=== PATIENT | male | born 1965 | race Caucasian/White ===

== ENCOUNTER 2018-05-04 06:55 | Inpatient (IN) | payer MEDICAID ==
[~2018-05-04] VITALS: Ht 182.9 cm; Wt 73.6 kg
[2018-05-04] MEDS ORDERED: SODIUM CHLORIDE 0.9% 1,000ML IVBOLUS ONE (07:30)
[2018-05-04] MEDS ORDERED: ASPIRIN 81 MG TABLET CHEW PO ONE (07:30)
[2018-05-04] MEDS ORDERED: ASPIRIN 81 MG TABLET CHEW ONE (07:31)
[2018-05-04 07:41] LABS: CALCIUM 7.8 mg/dL (8.5-10.1); CHLORIDE 89 mmol/L (98-107)
[2018-05-04 07:45] LABS: ALBUMIN 1.8 g/dL (3.4-5.0); CREATININE 0.86 mg/dL (0.7-1.3)
[2018-05-04 07:49] LABS: TROPONIN I < 0.015 ng/mL (0.000-0.045)
[2018-05-04 08:17] LABS: MEAN CORPUSCULAR HEMOGLOBIN 33.8 pg (27.5-34.5); MEAN CORPUSCULAR HGB CONC 34.6 g/dL (33.2-36.2); MEAN CORPUSCULAR VOLUME 97.6 fL (81-97); MEAN PLATELET VOLUME 10.5 fL (7.4-10.4); PLATELET COUNT 69 x10^3/uL (130-400); RED BLOOD COUNT 4.32 x10^6/uL (4.38-5.82)
[2018-05-04 08:18] LABS: ANION GAP 13 mmol/L (5-15)
[2018-05-04 08:23] LABS: BAND#(MANUAL) 1.39 x10^3/uL; BANDS%(MANUAL) 14 % (0-7); LYMPH#(MANUAL) 0.59 x10^3/uL (1-3.4); LYMPHS% (MANUAL) 6 % (22-44)
[2018-05-04 08:27] LABS: MONOS% (MANUAL) 1 % (2-9)
[2018-05-04 08:28] LABS: PMNS WITH VACUOLES 2+; SEG#(MANUAL) 7.82 x10^3/uL (1.8-6.8); SEGS% (MANUAL) 79 % (42-75)
[2018-05-04 08:29] LABS: TOXIC GRAN 2+
[2018-05-04] MEDS ORDERED: LORazepam 2 MG/ML, 1ML ONE (08:29)
[2018-05-04 08:30] LABS: <PLATELET ESTIMATE> DECREASED; <RBC MORPHOLOGY> NORMAL; LARGE PLATELETS 1+
[2018-05-04] MEDS ORDERED: LORazepam 2 MG/ML, 1ML IVPush ONE (08:30)
[2018-05-04 08:31] LABS: MD YES
[2018-05-04] MEDS ORDERED: OMNIPAQUE 350 MG/ML, 100ML BOTTLE ONE (08:33)
[2018-05-04] MEDS ORDERED: CEFTRIAXONE PMX 1GM/50ML 50 ML ONE (08:52)
[2018-05-04] MEDS ORDERED: AZITHROMYCIN 500 MG in SODIUM CHLORIDE 0.9% 250 ML IV ONE (09:00)
[2018-05-04] MEDS ORDERED: CEFTRIAXONE PMX 1GM/50ML 50 ML IV ONE (09:00)
[2018-05-04] MEDS ORDERED: POTASSIUM CHLORIDE 40 MEQ in SODIUM CHLORIDE 0.9% 500 ML IV ONE (09:00)
[2018-05-04] MEDS ORDERED: VANCOMYCIN PER PHARMACY MC PRN (10:30)
[2018-05-04] MEDS: LEVOFLOXACIN/PMX 750MG/150ML 150 ML IV SCH (11:00)
[2018-05-04] MEDS: methylPREDNISolone SOD SUCC 40 MG/ML IVPush SCH ×3 (11:13→23:11)
[2018-05-04] MEDS: HEPARIN 5,000 UNITS/ML, 1ML SQ SCH ×2 (11:13→16:58)
[2018-05-04] MEDS: NICOTINE 7 MG/24 HR PATCH.TD24 TD SCH (11:13)
[2018-05-04 11:25] VITALS: BP 118/62
[2018-05-04] MEDS ORDERED: PHARMACOKINETIC MONITORING MC PRN (11:30)
[2018-05-04 12:18] LABS: TOTAL PROTEIN 5.6 g/dL (6.4-8.2)
[2018-05-04] MEDS ORDERED: ALBUTEROL/IPRATROPIUM 2.5MG/0.5MG, 3 ML IPPB PRN (13:00)
[2018-05-04] MEDS: PIPERACILLIN/TAZO/PMX 4.5GM 100 ML IV SCH ×2 (14:02→19:34)
[2018-05-04 14:30] VITALS: BP 114/74
[2018-05-04] MEDS: VANCOMYCIN 1,400 MG in SODIUM CHLORIDE 0.9% 250 ML IV SCH (14:56)
[2018-05-04] MEDS: ALBUTEROL/IPRATROPIUM 2.5MG/0.5MG, 3 ML IPPB SCH ×2 (15:00→20:48)
[2018-05-04] MEDS ORDERED: POTASSIUM CHLORIDE 20 MEQ TAB.ER.PRT PO ONE (16:00)
[2018-05-04 16:40] LABS: ALBUMIN 1.6 g/dL (3.4-5.0); ANION GAP 11 mmol/L (5-15); CALCIUM 7.6 mg/dL (8.5-10.1); CHLORIDE 94 mmol/L (98-107); CREATININE 0.69 mg/dL (0.7-1.3)
[2018-05-04] MEDS ORDERED: LIDOCAINE-MPF 1%, 5ML ONE (16:59)
[2018-05-04] MEDS: FAMOTIDINE 20 MG TABLET PO SCH (19:33)
[2018-05-04] MEDS: ACETAMINOPHEN 325 MG TABLET PO PRN (19:33)
[2018-05-04 20:12] VITALS: BP 130/79
[2018-05-05] MEDS: PIPERACILLIN/TAZO/PMX 4.5GM 100 ML IV SCH ×4 (01:50→20:10)
[2018-05-05 02:54] VITALS: BP 125/75
[2018-05-05] MEDS: VANCOMYCIN 1,400 MG in SODIUM CHLORIDE 0.9% 250 ML IV SCH ×2 (03:43→16:05)
[2018-05-05] MEDS: HEPARIN 5,000 UNITS/ML, 1ML SQ SCH ×3 (03:44→20:11)
[2018-05-05] MEDS: methylPREDNISolone SOD SUCC 40 MG/ML IVPush SCH ×3 (05:17→17:17)
[2018-05-05 05:54] LABS: MEAN CORPUSCULAR HEMOGLOBIN 34.5 pg (27.5-34.5); MEAN CORPUSCULAR HGB CONC 35.1 g/dL (33.2-36.2); MEAN CORPUSCULAR VOLUME 98.4 fL (81-97); MEAN PLATELET VOLUME 10.6 fL (7.4-10.4); PLATELET COUNT 78 x10^3/uL (130-400); RED BLOOD COUNT 4.09 x10^6/uL (4.38-5.82); RED CELL DISTRIBUTION WIDTH 14.8 % (9.4-14.8)
[2018-05-05 06:02] LABS: ALBUMIN 1.4 g/dL (3.4-5.0); ANION GAP 11 mmol/L (5-15); CALCIUM 7.8 mg/dL (8.5-10.1); CHLORIDE 99 mmol/L (98-107)
[2018-05-05 06:07] LABS: ALANINE AMINOTRANSFERASE 65 U/L (12-78); ALKALINE PHOSPHATASE 55 U/L (45-117); BILIRUBIN,TOTAL 1.2 mg/dL (0.2-1.0); CREATININE 0.76 mg/dL (0.7-1.3); TOTAL PROTEIN 5.7 g/dL (6.4-8.2)
[2018-05-05 06:14] LABS: MD YES
[2018-05-05 06:16] LABS: <RBC MORPHOLOGY> NORMAL; BAND#(MANUAL) 0.54 x10^3/uL; BANDS%(MANUAL) 4 % (0-7); LYMPH#(MANUAL) 0.14 x10^3/uL (1-3.4); LYMPHS% (MANUAL) 1 % (22-44); SEG#(MANUAL) 12.92 x10^3/uL (1.8-6.8); SEGS% (MANUAL) 95 % (42-75)
[2018-05-05 06:17] LABS: <PLATELET ESTIMATE> DECREASED; LARGE PLATELETS 1+; PMNS WITH VACUOLES 1+; TOXIC GRAN 1+
[2018-05-05] MEDS: ALBUTEROL/IPRATROPIUM 2.5MG/0.5MG, 3 ML IPPB SCH ×4 (07:00→20:00)
[2018-05-05 07:46] VITALS: BP 124/77
[2018-05-05] MEDS: FAMOTIDINE 20 MG TABLET PO SCH ×2 (08:21→20:10)
[2018-05-05] MEDS: ACETAMINOPHEN 325 MG TABLET PO PRN ×3 (08:27→21:40)
[2018-05-05] MEDS: LEVOFLOXACIN/PMX 750MG/150ML 150 ML IV SCH (10:53)
[2018-05-05] MEDS: NICOTINE 7 MG/24 HR PATCH.TD24 TD SCH (10:53)
[2018-05-05 13:24] VITALS: BP 122/77
[2018-05-05 21:24] VITALS: BP 120/76
[2018-05-05] MEDS: LORazepam 2 MG/ML, 1ML IVPush PRN (21:39)
[2018-05-06] MEDS: methylPREDNISolone SOD SUCC 40 MG/ML IVPush SCH ×5 (00:08→23:31)
[2018-05-06 01:20] VITALS: BP 107/63
[2018-05-06] MEDS: PIPERACILLIN/TAZO/PMX 4.5GM 100 ML IV SCH ×2 (02:25→08:09)
[2018-05-06] MEDS: VANCOMYCIN 1,400 MG in SODIUM CHLORIDE 0.9% 250 ML IV SCH ×2 (03:55→16:30)
[2018-05-06] MEDS: HEPARIN 5,000 UNITS/ML, 1ML SQ SCH ×3 (05:08→20:51)
[2018-05-06] MEDS: ALBUTEROL/IPRATROPIUM 2.5MG/0.5MG, 3 ML IPPB SCH ×4 (06:50→20:00)
[2018-05-06 07:54] VITALS: BP 135/74
[2018-05-06] MEDS: FAMOTIDINE 20 MG TABLET PO SCH ×2 (08:12→20:51)
[2018-05-06] MEDS: ACETAMINOPHEN 325 MG TABLET PO PRN ×2 (09:08→16:34)
[2018-05-06] MEDS: LEVOFLOXACIN/PMX 750MG/150ML 150 ML IV SCH (10:49)
[2018-05-06] MEDS: NICOTINE 7 MG/24 HR PATCH.TD24 TD SCH (10:49)
[2018-05-06] MEDS: CEFTRIAXONE PMX 2GM/50ML 50 ML IV SCH (12:22)
[2018-05-06 14:20] VITALS: BP 124/75
[2018-05-06] MEDS: LORazepam 2 MG/ML, 1ML IVPush PRN (17:15)
[2018-05-06 20:32] VITALS: BP 145/78
[2018-05-06] MEDS ORDERED: LORazepam 2 MG/ML, 1ML IVPush ONE (23:30)
[2018-05-07 02:26] VITALS: BP 132/62
[2018-05-07] MEDS: ACETAMINOPHEN 325 MG TABLET PO PRN ×4 (02:28→20:30)
[2018-05-07] MEDS: VANCOMYCIN 1,400 MG in SODIUM CHLORIDE 0.9% 250 ML IV SCH (04:09)
[2018-05-07] MEDS: methylPREDNISolone SOD SUCC 40 MG/ML IVPush SCH ×4 (05:05→23:03)
[2018-05-07] MEDS: HEPARIN 5,000 UNITS/ML, 1ML SQ SCH ×3 (05:06→20:30)
[2018-05-07] MEDS: ALBUTEROL/IPRATROPIUM 2.5MG/0.5MG, 3 ML IPPB SCH ×4 (07:50→20:35)
[2018-05-07 08:51] VITALS: BP 150/81
[2018-05-07] MEDS: FAMOTIDINE 20 MG TABLET PO SCH ×2 (10:00→20:30)
[2018-05-07] MEDS: NICOTINE 7 MG/24 HR PATCH.TD24 TD SCH (10:01)
[2018-05-07] MEDS ORDERED: GUAIFENESIN ER 600 MG TABLET ONE (11:19)
[2018-05-07] MEDS: GUAIFENESIN ER 600 MG TABLET PO SCH ×2 (11:25→20:30)
[2018-05-07] MEDS: LEVOFLOXACIN/PMX 750MG/150ML 150 ML IV SCH (11:26)
[2018-05-07] MEDS: CEFTRIAXONE PMX 2GM/50ML 50 ML IV SCH (13:45)
[2018-05-07 13:47] VITALS: BP 147/73
[2018-05-07 19:43] VITALS: BP 154/74
[2018-05-08 01:27] VITALS: BP 151/80
[2018-05-08] MEDS: ACETAMINOPHEN 325 MG TABLET PO PRN ×3 (01:49→19:59)
[2018-05-08] MEDS: methylPREDNISolone SOD SUCC 40 MG/ML IVPush SCH ×2 (04:57→11:44)
[2018-05-08] MEDS: HEPARIN 5,000 UNITS/ML, 1ML SQ SCH ×3 (04:57→19:59)
[2018-05-08 05:30] LABS: CHLORIDE 104 mmol/L (98-107)
[2018-05-08 05:40] LABS: ALBUMIN 1.5 g/dL (3.4-5.0); ANION GAP 9 mmol/L (5-15); CALCIUM 6.8 mg/dL (8.5-10.1); CREATININE 0.67 mg/dL (0.7-1.3)
[2018-05-08 06:39] LABS: BASOPHILS % (AUTO) 0 % (0-1); EOSINOPHILS % (AUTO) 0 % (1-7); LYMPHOCYTES # (AUTO) 0.78 x10^3/uL (1-3.4); LYMPHOCYTES % (AUTO) 11 % (22-44); MD MORPH REVIEW ONLY; MEAN CORPUSCULAR HGB CONC 35.3 g/dL (33.2-36.2); MEAN CORPUSCULAR VOLUME 99.1 fL (81-97); MEAN PLATELET VOLUME 10.1 fL (7.4-10.4); MONOCYTES # (AUTO) 0.15 x10^3/uL (0.2-0.8); MONOCYTES % (AUTO) 2 % (2-9); NEUTROPHILS # (AUTO) 6.22 x10^3/uL (1.8-6.8); NEUTROPHILS % (AUTO) 87 % (42-75); PLATELET COUNT 89 x10^3/uL (130-400); RED BLOOD COUNT 4.03 x10^6/uL (4.38-5.82); RED CELL DISTRIBUTION WIDTH 14.9 % (9.4-14.8)
[2018-05-08 06:40] LABS: <PLATELET ESTIMATE> DECREASED; <RBC MORPHOLOGY> NORMAL; GIANT PLATELETS 1+; LARGE PLATELETS 1+
[2018-05-08 07:54] VITALS: BP 160/86
[2018-05-08] MEDS: GUAIFENESIN ER 600 MG TABLET PO SCH ×2 (08:16→19:59)
[2018-05-08] MEDS: FAMOTIDINE 20 MG TABLET PO SCH ×2 (08:16→19:59)
[2018-05-08] MEDS: NICOTINE 7 MG/24 HR PATCH.TD24 TD SCH (08:18)
[2018-05-08] MEDS: ALBUTEROL/IPRATROPIUM 2.5MG/0.5MG, 3 ML IPPB SCH ×4 (10:35→18:40)
[2018-05-08] MEDS: LEVOFLOXACIN/PMX 750MG/150ML 150 ML IV SCH (11:44)
[2018-05-08] MEDS: CEFTRIAXONE PMX 2GM/50ML 50 ML IV SCH (12:41)
[2018-05-08 14:49] VITALS: BP 173/85
[2018-05-08 19:20] VITALS: BP 158/73
[2018-05-09 02:02] VITALS: BP 151/72
[2018-05-09] MEDS: ACETAMINOPHEN 325 MG TABLET PO PRN ×4 (04:38→21:12)
[2018-05-09] MEDS: HEPARIN 5,000 UNITS/ML, 1ML SQ SCH ×3 (04:38→21:12)
[2018-05-09 05:59] LABS: ALBUMIN 1.5 g/dL (3.4-5.0); ANION GAP 8 mmol/L (5-15); CALCIUM 7.2 mg/dL (8.5-10.1); CHLORIDE 105 mmol/L (98-107)
[2018-05-09 06:01] LABS: CREATININE 0.59 mg/dL (0.7-1.3)
[2018-05-09 06:24] LABS: BASOPHILS # (AUTO) 0.01 x10^3/uL (0-0.1); BASOPHILS % (AUTO) 0 % (0-1); EOSINOPHILS # (AUTO) 0.01 x10^3/uL (0-0.4); EOSINOPHILS % (AUTO) 0 % (1-7); LYMPHOCYTES % (AUTO) 14 % (22-44); MD MORPH REVIEW ONLY; MEAN CORPUSCULAR HEMOGLOBIN 34.1 pg (27.5-34.5); MEAN CORPUSCULAR HGB CONC 34.5 g/dL (33.2-36.2); MEAN CORPUSCULAR VOLUME 98.8 fL (81-97); MEAN PLATELET VOLUME 12.4 fL (7.4-10.4); MONOCYTES # (AUTO) 0.18 x10^3/uL (0.2-0.8); MONOCYTES % (AUTO) 3 % (2-9); NEUTROPHILS # (AUTO) 5.54 x10^3/uL (1.8-6.8); NEUTROPHILS % (AUTO) 84 % (42-75); PLATELET COUNT 140 x10^3/uL (130-400); RED BLOOD COUNT 4.12 x10^6/uL (4.38-5.82); RED CELL DISTRIBUTION WIDTH 15.4 % (9.4-14.8)
[2018-05-09 06:25] LABS: <PLATELET ESTIMATE> ADEQUATE; <RBC MORPHOLOGY> NORMAL; GIANT PLATELETS 1+; LARGE PLATELETS 1+
[2018-05-09] MEDS: ALBUTEROL/IPRATROPIUM 2.5MG/0.5MG, 3 ML IPPB SCH ×4 (07:25→20:00)
[2018-05-09 07:40] VITALS: BP 165/73
[2018-05-09] MEDS: GUAIFENESIN ER 600 MG TABLET PO SCH ×2 (08:03→21:12)
[2018-05-09] MEDS: FAMOTIDINE 20 MG TABLET PO SCH ×2 (08:03→21:12)
[2018-05-09] MEDS: NICOTINE 7 MG/24 HR PATCH.TD24 TD SCH (08:03)
[2018-05-09] MEDS: predniSONE 50MG TABLET PO SCH (08:04)
[2018-05-09] MEDS: CEFTRIAXONE PMX 2GM/50ML 50 ML IV SCH (11:46)
[2018-05-09 14:51] VITALS: BP 138/72
[2018-05-09 19:42] VITALS: BP 158/79
[2018-05-10 01:52] VITALS: BP 146/78
[2018-05-10] MEDS: ONDANSETRON 2MG/ML, 2ML IVPush PRN ×3 (03:00→18:34)
[2018-05-10] MEDS: HEPARIN 5,000 UNITS/ML, 1ML SQ SCH ×3 (05:19→20:02)
[2018-05-10 05:24] LABS: MEAN CORPUSCULAR HEMOGLOBIN 33.6 pg (27.5-34.5); MEAN CORPUSCULAR VOLUME 98.9 fL (81-97); MEAN PLATELET VOLUME 11.4 fL (7.4-10.4); PLATELET COUNT 204 x10^3/uL (130-400); RED BLOOD COUNT 4.48 x10^6/uL (4.38-5.82); RED CELL DISTRIBUTION WIDTH 15.1 % (9.4-14.8)
[2018-05-10 05:39] LABS: ALBUMIN 1.2 g/dL (3.4-5.0); ANION GAP 9 mmol/L (5-15); CALCIUM 6.9 mg/dL (8.5-10.1); CHLORIDE 99 mmol/L (98-107); CREATININE 0.51 mg/dL (0.7-1.3)
[2018-05-10 05:55] LABS: MD YES
[2018-05-10 05:56] LABS: MONOS#(MANUAL) 0.41 x10^3/uL (0.3-2.7); MONOS% (MANUAL) 2 % (2-9)
[2018-05-10 05:57] LABS: LYMPH#(MANUAL) 1.85 x10^3/uL (1-3.4); LYMPHS% (MANUAL) 9 % (22-44); SEG#(MANUAL) 18.33 x10^3/uL (1.8-6.8); SEGS% (MANUAL) 89 % (42-75)
[2018-05-10 05:59] LABS: <PLATELET ESTIMATE> ADEQUATE; LARGE PLATELETS 1+; PMNS WITH VACUOLES 1+; TOXIC GRAN 1+
[2018-05-10 06:00] LABS: ANISOCYTOSIS 1+
[2018-05-10] MEDS: ALBUTEROL/IPRATROPIUM 2.5MG/0.5MG, 3 ML IPPB SCH ×4 (07:25→20:06)
[2018-05-10] MEDS: FAMOTIDINE 20 MG TABLET PO SCH ×2 (08:46→20:01)
[2018-05-10] MEDS: NICOTINE 7 MG/24 HR PATCH.TD24 TD SCH (08:46)
[2018-05-10] MEDS: predniSONE 50MG TABLET PO SCH (08:46)
[2018-05-10] MEDS: GUAIFENESIN ER 600 MG TABLET PO SCH ×2 (08:46→20:01)
[2018-05-10 08:52] VITALS: BP 103/65
[2018-05-10] MEDS ORDERED: OMNIPAQUE 350 MG/ML, 100ML BOTTLE ONE (11:37)
[2018-05-10 12:39] LABS: CLOSTRIDIUM DIFFICILE ANTIGEN NEGATIVE; CLOSTRIDIUM DIFFICILE TOXIN NEGATIVE (Negative)
[2018-05-10] MEDS ORDERED: TEMAZEPAM 15 MG CAPSULE PO ONE (13:00)
[2018-05-10] MEDS ORDERED: TEMAZEPAM 15 MG CAPSULE ONE (13:03)
[2018-05-10] MEDS: ACETAMINOPHEN 325 MG TABLET PO PRN ×2 (13:10→18:34)
[2018-05-10] MEDS: CEFTRIAXONE PMX 2GM/50ML 50 ML IV SCH (13:10)
[2018-05-10 15:20] VITALS: BP 112/73
[2018-05-10 16:42] LABS: MEAN CORPUSCULAR VOLUME 98.9 fL (81-97); RED BLOOD COUNT 4.58 x10^6/uL (4.38-5.82)
[2018-05-10 16:43] LABS: BASOPHILS # (AUTO) 0.17 x10^3/uL (0-0.1); BASOPHILS % (AUTO) 2 % (0-1); EOSINOPHILS # (AUTO) 0.02 x10^3/uL (0-0.4); EOSINOPHILS % (AUTO) 0 % (1-7); LYMPHOCYTES # (AUTO) 0.57 x10^3/uL (1-3.4); LYMPHOCYTES % (AUTO) 7 % (22-44); MD NO; MEAN CORPUSCULAR HEMOGLOBIN 34.4 pg (27.5-34.5); MEAN CORPUSCULAR HGB CONC 34.8 g/dL (33.2-36.2); MEAN PLATELET VOLUME 11.1 fL (7.4-10.4); MONOCYTES # (AUTO) 0.33 x10^3/uL (0.2-0.8); MONOCYTES % (AUTO) 4 % (2-9); PLATELET COUNT 243 x10^3/uL (130-400); RED CELL DISTRIBUTION WIDTH 14.9 % (9.4-14.8)
[2018-05-10 16:44] LABS: NEUTROPHILS % (AUTO) 87 % (42-75)
[2018-05-10 19:46] VITALS: BP 112/76
[2018-05-10] MEDS ORDERED: TEMAZEPAM 15 MG CAPSULE PO PRN (21:00)
[2018-05-11] MEDS: ONDANSETRON 2MG/ML, 2ML IVPush PRN ×3 (01:54→19:11)
[2018-05-11 02:43] VITALS: BP 102/52
[2018-05-11] MEDS: HEPARIN 5,000 UNITS/ML, 1ML SQ SCH ×3 (05:26→20:41)
[2018-05-11] MEDS: ACETAMINOPHEN 325 MG TABLET PO PRN ×2 (05:27→12:44)
[2018-05-11 06:50] VITALS: BP 121/77
[2018-05-11] MEDS: NICOTINE 7 MG/24 HR PATCH.TD24 TD SCH (07:41)
[2018-05-11] MEDS: GUAIFENESIN ER 600 MG TABLET PO SCH ×2 (07:42→20:41)
[2018-05-11] MEDS: FAMOTIDINE 20 MG TABLET PO SCH ×2 (07:42→20:41)
[2018-05-11] MEDS: predniSONE 50MG TABLET PO SCH (07:42)
[2018-05-11 08:37] LABS: BASOPHILS # (AUTO) 0.03 x10^3/uL (0-0.1); BASOPHILS % (AUTO) 0 % (0-1); EOSINOPHILS # (AUTO) 0.19 x10^3/uL (0-0.4); EOSINOPHILS % (AUTO) 2 % (1-7); LYMPHOCYTES # (AUTO) 1.81 x10^3/uL (1-3.4); LYMPHOCYTES % (AUTO) 15 % (22-44); MD SCAN; MEAN CORPUSCULAR HEMOGLOBIN 34.4 pg (27.5-34.5); MEAN CORPUSCULAR HGB CONC 34.2 g/dL (33.2-36.2); MEAN CORPUSCULAR VOLUME 100.4 fL (81-97); MEAN PLATELET VOLUME 10.7 fL (7.4-10.4); MONOCYTES # (AUTO) 0.48 x10^3/uL (0.2-0.8); MONOCYTES % (AUTO) 4 % (2-9); NEUTROPHILS # (AUTO) 9.99 x10^3/uL (1.8-6.8); NEUTROPHILS % (AUTO) 80 % (42-75); PLATELET COUNT 271 x10^3/uL (130-400); RED BLOOD COUNT 4.11 x10^6/uL (4.38-5.82); RED CELL DISTRIBUTION WIDTH 15.7 % (9.4-14.8)
[2018-05-11] MEDS: ALBUTEROL/IPRATROPIUM 2.5MG/0.5MG, 3 ML IPPB SCH ×3 (08:40→15:00)
[2018-05-11] MEDS: CEFTRIAXONE PMX 2GM/50ML 50 ML IV SCH (12:36)
[2018-05-11] MEDS ORDERED: ALBU90AE INH (12:59)
[2018-05-11] MEDS ORDERED: BUDE10.22 NAS (12:59)
[2018-05-11] MEDS ORDERED: NICO-485 TD (12:59)
[2018-05-11] MEDS ORDERED: CEFD300C37 PO (12:59)
[2018-05-11] MEDS ORDERED: GUAI600T31 PO (12:59)
[2018-05-11] MEDS ORDERED: PRED50TA PO ×2 (12:59)
[2018-05-11 13:31] VITALS: BP 121/69
[2018-05-11 20:17] VITALS: BP 121/76
[2018-05-12 01:49] VITALS: BP 117/68
[2018-05-12] MEDS: HEPARIN 5,000 UNITS/ML, 1ML SQ SCH ×2 (05:22→13:20)
[2018-05-12] MEDS: ONDANSETRON 2MG/ML, 2ML IVPush PRN (05:22)
[2018-05-12] MEDS: ACETAMINOPHEN 325 MG TABLET PO PRN ×2 (07:27→14:36)
[2018-05-12 08:00] VITALS: BP 121/70
[2018-05-12] MEDS: GUAIFENESIN ER 600 MG TABLET PO SCH (08:48)
[2018-05-12] MEDS: predniSONE 50MG TABLET PO SCH (08:48)
[2018-05-12] MEDS: FAMOTIDINE 20 MG TABLET PO SCH (08:48)
[2018-05-12] MEDS: NICOTINE 7 MG/24 HR PATCH.TD24 TD SCH (08:53)
[2018-05-12] MEDS: CEFTRIAXONE PMX 2GM/50ML 50 ML IV SCH (12:47)
[2018-05-12 13:05] VITALS: BP 123/83
[2018-05-12 16:16] VITALS: BP 124/86
== END 2018-05-12 17:02 | disposition home or self-care (01) | DRG 871 ==
LOC: ED 07:34 → 4NOR 09:05 → DCLOUNGE 05-12 16:55
PROVIDERS: ADMIT Internal Medicine; ATTEND Internal Medicine
PROC: 0W993ZZ Drainage of Right Pleural Cavity, Percutaneous Approach (ICD-10-PCS; principal; 2018-05-04)
DX: A41.9 Sepsis, unspecified organism (principal); J13 Pneumonia due to Streptococcus pneumoniae; J96.01 Acute respiratory failure with hypoxia; J91.8 Pleural effusion in other conditions classified elsewhere; E22.2 Syndrome of inappropriate secretion of antidiuretic hormone; R65.20 Severe sepsis without septic shock; K59.31 Toxic megacolon; B95.3 Streptococcus pneumoniae as the cause of diseases classified elsewhere; D69.59 Other secondary thrombocytopenia; E87.6 Hypokalemia; E88.09 Other disorders of plasma-protein metabolism, not elsewhere classified; F41.9 Anxiety disorder, unspecified; G47.00 Insomnia, unspecified; K37 Unspecified appendicitis; F17.210 Nicotine dependence, cigarettes, uncomplicated; F10.20 Alcohol dependence, uncomplicated
CPT/HCPCS: 32555; 36415; 36600; 84145; 87806; 99285; J7620; 71045; 71275; 74177; 80048; 80053; 80069; 80202; 82040; 82803; 83605; 83615; 83735; 84100; 84155; 84484; 85025; 85379; 85651; 87040; 87070; 87075; 87077; 87109; 87181; 87205; 87324; 90656; 93005; 93306; 94640; 94668; 96361; 96365; 96366; 96375; G0378; J0456; J0696; J1644; J1956; J2405; J2543; J3370; J3480; Q9967; G0475; J2060; J2920; J7030; J7040; J7050; J7512

== ENCOUNTER 2019-10-05 07:09 | Emergency (ER) | payer MEDICAID ==
[~2019-10-05] VITALS: Ht 182.9 cm; Wt 70.0 kg
[~2019-10-05 07:09] MED LIST: ALBU90AE INH; BUDE10.22 NAS; CEFD300C37 PO; GUAI600T31 PO; NICO-485 TD; PRED50TA PO
[2019-10-05 07:12] VITALS: BP 139/84
--- NOTE | 2019-10-05 07:23 | NUR ---
BIB EMS FOR N/V STARTING LAST NIGHT W ABDOMINAL PAIN. PT STATES HE MIGHT HAVE EATEN SOMETHING BAD. BS WDL IN ROUTE. IV INFILTRATED FROM EMS. VSS
[2019-10-05] MEDS ORDERED: FAMOTIDINE 20 MG/2 ML ONE (07:25)
[2019-10-05] MEDS ORDERED: ONDANSETRON 2MG/ML, 2ML ONE (07:25)
[2019-10-05] MEDS ORDERED: FAMOTIDINE 20 MG/2 ML IV ONE (07:30)
[2019-10-05] MEDS ORDERED: SODIUM CHLORIDE 0.9% 1,000ML IVBOLUS ONE (07:30)
[2019-10-05] MEDS ORDERED: ONDANSETRON 2MG/ML, 2ML IVPush ONE (07:30)
--- NOTE | 2019-10-05 07:46 | NUR ---
IV ESTABLSIHED, IVF, MEDS PER ORDERED ADMIN. PT WASHED FACE. NO OTHER NEEDS AT THIS TIME
[2019-10-05 07:57] LABS: MEAN CORPUSCULAR HEMOGLOBIN 32.3 pg (27.5-34.5); MEAN CORPUSCULAR HGB CONC 33.3 g/dL (33.2-36.2); MEAN CORPUSCULAR VOLUME 96.8 fL (81-97); MEAN PLATELET VOLUME 8.5 fL (7.4-10.4); PLATELET COUNT 227 x10^3/uL (130-400); RED BLOOD COUNT 4.42 x10^6/uL (4.38-5.82); RED CELL DISTRIBUTION WIDTH 14.2 % (9.4-14.8)
[2019-10-05 08:05] LABS: ANION GAP 9 mmol/L (5-15); CALCIUM 8.2 mg/dL (8.5-10.1); CHLORIDE 106 mmol/L (98-107)
[2019-10-05 08:08] LABS: ALANINE AMINOTRANSFERASE 24 U/L (12-78); ALKALINE PHOSPHATASE 86 U/L (45-117); BILIRUBIN,TOTAL 1.5 mg/dL (0.2-1.0); CREATININE 0.69 mg/dL (0.7-1.3); TOTAL PROTEIN 7.1 g/dL (6.4-8.2)
[2019-10-05 08:37] LABS: BASOPHILS # (AUTO) 0.02 x10^3/uL (0-0.1); BASOPHILS % (AUTO) 0 % (0-1); EOSINOPHILS # (AUTO) 0.09 x10^3/uL (0-0.4); EOSINOPHILS % (AUTO) 1 % (1-7); LYMPHOCYTES # (AUTO) 0.54 x10^3/uL (1-3.4); LYMPHOCYTES % (AUTO) 3 % (22-44); MD SCAN; MONOCYTES # (AUTO) 0.29 x10^3/uL (0.2-0.8); MONOCYTES % (AUTO) 2 % (2-9); NEUTROPHILS # (AUTO) 16.36 x10^3/uL (1.8-6.8); NEUTROPHILS % (AUTO) 95 % (42-75)
--- NOTE | 2019-10-05 09:00 | NUR ---
Patient/Caregiver given discharge instructions and they have confirmed that they understand the instructions. Patient ambulatory with steady gait.
== END 2019-10-05 09:13 | disposition home or self-care (01) ==
LOC: ED 08:57
DX: K29.00 Acute gastritis without bleeding (principal); D72.829 Elevated white blood cell count, unspecified; R11.2 Nausea with vomiting, unspecified; E87.6 Hypokalemia
CPT/HCPCS: 36415; 80053; 83690; 85025; 96374; 96375; 99284; J2405; J3490; J7030

== ENCOUNTER 2019-12-08 06:52 | Emergency (ER) | payer MEDICAID ==
[~2019-12-08] VITALS: Ht 182.9 cm; Wt 73.0 kg
--- NOTE | 2019-12-08 07:05 | NUR ---
Pt to room from triage, ambulatory with steady gait.
[2019-12-08] MEDS ORDERED: HYDROcodone/APAP 5/325 TABLET ONE (07:29)
[2019-12-08] MEDS ORDERED: HYDROcodone/APAP 5/325 TABLET PO ONE (07:30)
--- NOTE | 2019-12-08 07:32 | NUR ---
Pt medicated for 8/10 pain per MAR, denies other needs.
--- NOTE | 2019-12-08 08:02 | NUR ---
Pt positioned for comfort in gurney per request, denies other needs.
--- NOTE | 2019-12-08 08:32 | NUR ---
Pt states pain improved after pain med given, now 08/14. Pt resting in bed, denies other needs.
[2019-12-08 08:43] VITALS: BP 137/89
== END 2019-12-08 08:53 | disposition home or self-care (01) ==
LOC: ED 08:20
DX: S22.42XA Multiple fractures of ribs, left side, initial encounter for closed fracture (principal); M70.21 Olecranon bursitis, right elbow; F17.200 Nicotine dependence, unspecified, uncomplicated; Y04.8XXA Assault by other bodily force, initial encounter; Y93.89 Activity, other specified; Y92.488 Other paved roadways as the place of occurrence of the external cause; Y99.8 Other external cause status
CPT/HCPCS: 99283